=== PATIENT | female | born 2000 | race Caucasian/White ===

== ENCOUNTER 2019-03-23 16:40 | Emergency (ER) | payer SELFPAY ==
[~2019-03-23] VITALS: Ht 160 cm; Wt 48.0 kg
[2019-03-23] MEDS ORDERED: CYCLOBENZAPRINE 10MG TABLET PO ONE (18:00)
[2019-03-23] MEDS ORDERED: IBUPROFEN 600MG TABLET PO ONE (18:00)
[2019-03-23 18:38] VITALS: BP 110/72
== END 2019-03-23 18:41 | disposition home or self-care (01) ==
LOC: ER 16:40
DX: M54.6 Pain in thoracic spine (principal); M62.838 Other muscle spasm
CPT/HCPCS: 81025; 99283